=== PATIENT | male | born 1955 | race African-American/Black ===

== ENCOUNTER 2016-11-27 07:41 | Emergency (ER) | payer OTHER ==
[~2016-11-27] VITALS: Ht 182.9 cm; Wt 130.0 kg
[2016-11-27 07:43] VITALS: BP 182/101; PULSE 100; RESP 20; TEMP 98.7; O2SAT 98
[2016-11-27] MEDS ORDERED: CEPH-460 PO (08:01)
--- NOTE | 2016-11-27 08:01 | PD ---
HPI Chief Complaint: Skin Problem Time Seen by Provider: 07:56 Travel History International Travel<30 days: No Contact w/Intl Traveler<30days: No Traveled to known affect area: No History of Present Illness HPI 61-year-old male here with complaint of skin problem. Patient states that he has a painful rash to the nape of the neck. This has been present for the last 3 days. Denies any drainage. No new lotions, soaps, detergents, clothing, necklace, etc. PFSH Past Medical History Diabetes: Yes Social History Tobacco Use: No (former) Review of Systems General / Constitutional: No: Fever Cardiovascular: No: Chest Pain or Discomfort Respiratory: No: Shortness of Breath Skin: Positive Rash Neurologic: No: Weakness Physical Exam Narrative GENERAL: Well-appearing male in no acute distress SKIN: Warm and dry. 4 small ingrown hairs, furuncles on the nape of the neck. HEAD: Atraumatic. Normocephalic. NECK: Supple without induration or fluctuance CARDIOVASCULAR: Regular rate and rhythm. Hypertensive RESPIRATORY: No accessory muscle use. GASTROINTESTINAL: Obese MUSCULOSKELETAL: Normal gait NEUROLOGICAL: Awake and alert. Normal speech. PSYCHIATRIC: Appropriate mood and affect; insight and judgment normal. Data Data Last Documented VS Vital Signs Date Time Temp Pulse Resp B/P Pulse Ox O2 Delivery O2 Flow Rate FiO2 11/27/16 07:43 98.7 100 20 182/101 98 Room Air MDM Medical Decision Making Medical Screen Exam Complete: Yes Emergency Medical Condition: Yes Medical Record Reviewed: Yes Differential Diagnosis 61-year-old male here with complaint of painful rash on the nape of the neck. Exam is consistent with ingrown hairs, furuncles. Narrative Course Patient will be treated with antibiotics for home. Diagnosis Primary Impression: Furuncle Additional Impression: Hypertension Qualified Code: I10 - Essential hypertension Referrals: Primary Care Physician call for appointment Additional Instructions: Finish antibiotics prescribed. Follow-up with primary care provider for management of high blood pressure. Med/Other Pt SpecificInfo: Prescription(s) given Scripts Cephalexin (Keflex)500 Mg Ixb662 Mg PO Q6H 7 Days Ref 0 Prov:Azul Leo MD 11/27/16 Disposition: 01 DISCHARGE HOME Condition: Stable Azul Leo MD Nov 27, 2016 08:01
[2016-11-27] MEDS ORDERED: METF1000 PO (08:05)
[2016-11-27 08:20] VITALS: BP 144/89
== END 2016-11-27 08:20 | disposition home or self-care (01) ==
LOC: NEPC 07:41
DX: L02.12 Furuncle of neck (principal); I10 Essential (primary) hypertension; E11.9 Type 2 diabetes mellitus without complications; Z87.891 Personal history of nicotine dependence
CPT/HCPCS: 99283